=== PATIENT | female | born 1985 | race Caucasian/White ===

== ENCOUNTER 2016-02-25 19:41 | Observation (INO) | payer SELFPAY ==
[~2016-02-25] VITALS: Ht 162.6 cm; Wt 148.2 kg
[2016-02-25 21:53] LABS: HEMATOCRIT 33.2 % (36.0-46.0); MCH 20.2 PG (29.0-34.0); MCHC 29.8 G/DL (30.0-36.0); MCV 67.9 FL (83-99); MEAN PLAT.VOLUME 9.1 uM^3 (9.5-12.4); PLATELET COUNT 332 K/uL (156-360); RBC DIS.WIDTH-CV 18.9 % (11.8-14.6); RBC DIS.WIDTH-SD 46.4 % (39-53); RED BLOOD COUNT 4.89 M/uL (3.80-5.20); WHITE BLOOD COUNT 6.9 K/uL (4.1-10.2)
[2016-02-25 21:59] LABS: EOSINOPHIL (%) 4.3 % (0-5); EOSINOPHIL COUNT 0.3 K/uL (0-0.3); IMMATURE GRANULOCYTE (%) 0.1 % (0.0-0.7); IMMATURE GRANULOCYTE COUNT 0.1 K/uL; LYMPHOCYTE COUNT 1.2 K/uL (1.0-2.8); MONOCYTE (%) 6.8 % (3-12); MONOCYTE COUNT 0.5 K/uL (0-0.8); NEUTROPHIL COUNT 4.9 K/uL (1.8-6.4)
[2016-02-25 22:03] LABS: CHLORIDE 109 mEq/L (99-109); POTASSIUM 3.8 mEq/L (3.7-5.4); SODIUM 141 mEq/L (136-147)
[2016-02-25 22:06] LABS: GLUCOSE 101 mg/dL (70-99)
[2016-02-25 22:07] LABS: ANION GAP 7 MEQ/L (2-14)
[2016-02-25 22:08] LABS: TOTAL BILIRUBIN 0.2 mg/dL (0.0-1.0)
[2016-02-25 22:09] LABS: ALKALINE PHOSPHATASE 57 IU/L (3-129); GFR ESTIMATE (CALCULATED) > 59 mL/min/
[2016-02-25 22:10] LABS: UREA NITROGEN (BUN) 8 mg/dL (9-23)
[2016-02-25 22:22] LABS: QUANTITATIVE HCG < 4.0 MIU/ML
[2016-02-26 03:06] LABS: TROP-I INTERPRETATION NEGATIVE; TROPONIN-I < 0.01 ng/mL (0.0-0.30)
[2016-02-26 09:55] LABS: TROP-I INTERPRETATION NEGATIVE; TROPONIN-I < 0.01 ng/mL (0.0-0.30)
[2016-02-26 11:16] VITALS: BP 146/76
[2016-02-26 15:10] LABS: TROP-I INTERPRETATION NEGATIVE; TROPONIN-I < 0.01 ng/mL (0.0-0.30)
[2016-02-26 20:04] VITALS: BP 165/83
[2016-02-27] VITALS: BP 145/81
[2016-02-27 04:00] VITALS: BP 115/71
[2016-02-27 07:00] LABS: IRON 27 MCG/DL (35-150)
[2016-02-27 07:44] LABS: FERRITIN 9 NG/ML (10-291)
[2016-02-27 08:00] VITALS: BP 130/74
[2016-02-27 08:30] LABS: HEMATOCRIT 32.4 % (36.0-46.0); MCH 20.2 PG (29.0-34.0); MCV 69.7 FL (83-99); MEAN PLAT.VOLUME 10.1 uM^3 (9.5-12.4); PLATELET COUNT 277 K/uL (156-360); RBC DIS.WIDTH-CV 18.4 % (11.8-14.6); RBC DIS.WIDTH-SD 46.3 % (39-53); RED BLOOD COUNT 4.65 M/uL (3.80-5.20); WHITE BLOOD COUNT 5.7 K/uL (4.1-10.2)
[2016-02-27 08:38] LABS: ANION GAP 8 MEQ/L (2-14); CHLORIDE 104 MEQ/L (99-109); GFR ESTIMATE (CALCULATED) > 59 mL/min/; GLUCOSE 99 mg/dL (70-99); SODIUM 139 MEQ/L (136-147); UREA NITROGEN (BUN) 10 mg/dL (9-23)
[2016-02-27 08:41] LABS: POTASSIUM 4.6 MEQ/L (3.7-5.4)
[2016-02-27 09:09] VITALS: BP 128/75
[2016-02-27] MEDS ORDERED: ASPIR-LOW81 MG PO (10:37)
[2016-02-27] MEDS ORDERED: LOPRESSOR25 MG PO (10:37)
== END 2016-02-27 11:10 | disposition home or self-care (01) ==
LOC: EME 19:41 → EDOF 02-26 05:09 → 4SOUTH 02-26 05:09 → EDOF 02-26 05:09 → 4SOUTH 02-26 08:00
PROVIDERS: Emergency Medicine; Physician Assistant; Student in an Organized Health Care Education/Training Program
DX: R07.9 Chest pain, unspecified (principal); D50.9 Iron deficiency anemia, unspecified; E66.01 Morbid (severe) obesity due to excess calories; Z68.43 Body mass index [BMI] 50.0-59.9, adult; M79.602 Pain in left arm; M54.2 Cervicalgia; D68.9 Coagulation defect, unspecified; Z82.49 Family history of ischemic heart disease and other diseases of the circulatory system; Z88.0 Allergy status to penicillin; R50.9 Fever, unspecified
CPT/HCPCS: 71020; 71275; 80048; 80053; 82728; 83540; 84466; 84484; 84702; 85025; 85027; 85379; 93005; 99281; 99285; G0378; J1200; J2270; J2405; J2765; J7030